=== PATIENT | male | born 1970 | race Caucasian/White ===

== ENCOUNTER 2018-10-03 10:39 | Outpatient (CLI) | payer OTHER ==
[2018-10-03] MEDS ORDERED: Iopamidol 370 76% 100 ML VIAL ONE (10:51)
--- NOTE | 2018-10-03 14:14 | CT ---
Exam: Postcontrast soft tissue neck CT HISTORY: Mass in the right side of the neck. COMPARISON: None FINDINGS: Visualized brain parenchyma is unremarkable Visualized orbits are unremarkable Mild mucosal thickening of the maxillary sinuses Aerodigestive tract is patent. No mucosal abnormality Epiglottis has a normal caliber. Preepiglottic fat is preserved. No obvious masses in the oral cavity . Midline fatty raphae of the tongue is preserved. No prevertebral soft tissue swelling Symmetric attenuation parotid and submandibular glands Unremarkable thyroid gland Abnormal attenuation involving the insertion of the right sternocleidomastoid muscles. There appears to be a predominantly hypodense focus measuring 1.9 x 1.7 cm. A second smaller hypodense focus is noted. These hypodensities aren't the level of the palpable area The underlying osseous structures do not demonstrate any erosive or destructive changes. There are bilateral nonenlarged soft tissue neck lymph nodes. Grossly the great vessels of the neck are patent Cervical spine vertebral body height is maintained. No fracture. Varying degrees of central canal stenosis and neural foraminal narrowing on the basis of degenerative change. No high-grade stenosis. Limited evaluation due to technique Groundglass opacities in the superior segment of both lower lobes. Upper mediastinum is unremarkable IMPRESSION: Asymmetric fullness and 2 discrete hypodensities at the insertion of the right sternocleidomastoid mu scle. Intramuscular lesion is favored. Correlate for infectious process versus a intramuscular hematoma. Ultrasound aspiration may be beneficial. CODE T Transcribed Date/Time: 10/03/2018 2:19 PM
== END 2018-10-03 10:40 | disposition home or self-care (01) ==
LOC: CT 10:39
PROVIDERS: ATTEND Physician Assistant
DX: R22.1 Localized swelling, mass and lump, neck (principal)
CPT/HCPCS: 70491; Q9967

== ENCOUNTER 2018-10-10 14:31 | Outpatient (CLI) | payer OTHER ==
[~2018-10-10 14:31] MED LIST: ISOVUE-370 76%-LOCM 1 ML ONE
--- NOTE | 2018-10-10 15:35 | CT ---
CT CHEST WITH CONTRAST CLINICAL INDICATION: Cough, abnormal finding of lung field. Recent CT scan of the neck demonstrates a lesion at the level of the insertion of right sternocleidomastoid muscle. COMPARISON: CT neck on 10/03/2018. FINDINGS: Aorta: The aorta is normal in caliber without evidence of an aortic dissection. Lungs: Clear without evidence of consolidation or pleural effusion. Mediastinum: There is no evidence of lymphadenopathy. Thyroid gland: Normal CT appearance. 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 No other osseous abnormality appreciated. Chest wall: As noted on the CT scan of the neck, there is a hypodense lesion with cystic areas presen t at the level of the insertion of the right sternocleidomastoid muscle. This lesion does not appear to arise from the sternoclavicular joint and may represent an intramuscular lesion at the inse rtion of the sternocleidal mastoid muscle on the right. This lesion measures 3.9 cm craniocaudal x2.8 cm AP x 2.7 cm transverse. Further evaluation with MRI is recommended to evaluate for enhancemen t and the exact location of this lesion. No degenerative changes or erosions are seen in the region of the sternoclavicular joint. Upper abdomen: Within normal limits for phase of imaging. IMPRESSION: As noted on recent CT scan of the neck, there is a cystic and solid lesion seen at the insertion of t he right sternocleidal mastoid muscle and is likely related to an intramuscular lesion which is at the level of the right sternoclavicular joint. MRI may be beneficial for further evaluation.
== END 2018-10-10 14:32 | disposition home or self-care (01) ==
LOC: BICCT 14:31
PROVIDERS: ATTEND Physician Assistant
DX: R91.8 Other nonspecific abnormal finding of lung field (principal); R05 Cough; M62.89 Other specified disorders of muscle
CPT/HCPCS: 71260; Q9966